=== PATIENT | male | born 1995 | race Caucasian/White ===

== ENCOUNTER 2018-07-11 09:49 | Day surgery (SDC) | payer OTHER ==
[~2018-07-11] VITALS: Ht 170.2 cm; Wt 62.6 kg
[2018-07-11] MEDS ORDERED: LACTATED RINGERS 1,000 ML IV SCH ×2 (10:30→10:37)
[2018-07-11 10:39] VITALS: BP 138/80
[2018-07-11] MEDS ORDERED: ENOX30SY4 SC (10:39)
[2018-07-11] MEDS ORDERED: PLEASE ENTER HEIGHT AND WEIGHT MC SCH (11:00)
[2018-07-11] MEDS ORDERED: LIDOCAINE-MPF 1%, 2ML INFIL ONE (11:00)
[2018-07-11] MEDS ORDERED: FENTANYL PF 250 MCG/5ML ONE (13:43)
[2018-07-11] MEDS ORDERED: MIDAZOLAM 1 MG/ML, 2ML ONE (13:43)
[2018-07-11] MEDS ORDERED: MIDAZOLAM 1 MG/ML, 2ML IV PRN (14:00)
[2018-07-11] MEDS ORDERED: FENTANYL PF 100 MCG/2ML IV PRN (14:00)
[2018-07-11] MEDS ORDERED: ACETAMINOPHEN 325 MG TABLET PO PRN (14:00)
[2018-07-11] MEDS ORDERED: PROMETHAZINE 12.5 MG SUPP PR PRN (14:00)
[2018-07-11] MEDS ORDERED: OXYcodone 5 MG/5 ML ORAL.SOL UDC PO PRN (14:00)
[2018-07-11] MEDS ORDERED: MORPHINE SULFATE 4 MG/ML, 1ML IVPush PRN (14:00)
[2018-07-11] MEDS ORDERED: ONDANSETRON ODT 8 MG PO PRN (14:00)
[2018-07-11] MEDS ORDERED: DIPHENHYDRAMINE 50 MG/ML, 1ML IVPush PRN (14:00)
[2018-07-11] MEDS ORDERED: ONDANSETRON 2MG/ML, 2ML IV PRN (14:00)
[2018-07-11] MEDS ORDERED: MEPERIDINE/PF 25MG/0.5ML IVPush PRN (14:00)
[2018-07-11] MEDS ORDERED: CEFAZOLIN 1,000 MG ONE (14:10)
[2018-07-11] MEDS ORDERED: DEXAMETHASONE 4 MG/ML, 1ML ONE (14:10)
[2018-07-11] MEDS ORDERED: KETOROLAC 30 MG/1 ML ONE (14:10)
[2018-07-11] MEDS ORDERED: ONDANSETRON 2MG/ML, 2ML ONE (14:10)
[2018-07-11] MEDS ORDERED: PROPOFOL 10 MG/ML, 20ML ONE (14:10)
[2018-07-11] MEDS ORDERED: PROPOFOL 10 MG/ML, 50ML ONE (14:10)
[2018-07-11] MEDS ORDERED: PROPOFOL 50 ML ONE (14:33)
[2018-07-11] MEDS ORDERED: BUPIVACAINE/PF-EPI 0.5% 1:200K INFIL ONE (14:53)
[2018-07-11] MEDS ORDERED: BUPIVACAINE/PF-EPI 0.5% 1:200K ONE (15:03)
[2018-07-11] MEDS ORDERED: OXYcodone 5 MG/5 ML ORAL.SOL UDC ONE (15:43)
== END 2018-07-11 16:55 | disposition home or self-care (01) ==
LOC: OUT 09:49
PROVIDERS: ATTEND Orthopaedic Surgery
DX: T85.698A Other mechanical complication of other specified internal prosthetic devices, implants and grafts, initial encounter (principal); T85.898A Other specified complication of other internal prosthetic devices, implants and grafts, initial encounter; Y83.8 Other surgical procedures as the cause of abnormal reaction of the patient, or of later complication, without mention of misadventure at the time of the procedure; Y92.89 Other specified places as the place of occurrence of the external cause; Z98.890 Other specified postprocedural states
CPT/HCPCS: 11982; 73501; 76000; J0690; J1100; J1885; J2250; J2405; J2704; J3010; J7120